=== PATIENT | male | born 1975 | race Caucasian/White ===

== ENCOUNTER 2020-08-19 13:34 | Emergency (ER) | payer MEDICAID, OTHER ==
[~2020-08-19] VITALS: Ht 175.3 cm; Wt 84.7 kg
--- NOTE | 2020-08-19 13:55 | NUR ---
[facility] FROM [facility], PT IN CUSTODY AND OFFICERS AT BEDSIDE. PER EMS PT ALTERED FSBS + 98 AND VSS SUPERVISOR CLAM BED. EMS RPTS PT ORIENTED TO PERSON AND YEAR ONLY. DR MARTINEZ AT BEDSIDE. PT NOW ALERT AND ORIENTED TO PERSON, PLACE AND FOLLOWS COMMANDS WITH ENCOURAGEMENT. PT HAS NO COMPLAINTS OF PAIN. DENIES DRUG USE. PUPILS ARE DILATED EDUARDO 6MM REACTIVE. ADMITS TO "1 DRINK TODAY" VSS. POC DISCUSSED, ORDERS REC'D.
[2020-08-19 14:13] LABS: BASOPHILS % (AUTO) 1 % (0-1); EOSINOPHILS % (AUTO) 0 % (1-7); LYMPHOCYTES % (AUTO) 21 % (22-44); MEAN CORPUSCULAR HEMOGLOBIN 30.8 pg (27.5-34.5); MEAN CORPUSCULAR HGB CONC 33.9 g/dL (33.2-36.2); MEAN PLATELET VOLUME 7.4 fL (7.4-10.4); MONOCYTES % (AUTO) 10 % (2-9); NEUTROPHILS % (AUTO) 68 % (42-75); PLATELET COUNT 331 x10^3/uL (130-400); RED BLOOD COUNT 5.12 x10^6/uL (4.38-5.82); RED CELL DISTRIBUTION WIDTH 13.5 % (9.4-14.8)
[2020-08-19 14:14] LABS: MD NO
[2020-08-19 14:24] LABS: ALANINE AMINOTRANSFERASE 17 U/L (12-78); ALBUMIN 4.5 g/dL (3.4-5.0); ANION GAP 8 mmol/L (5-15); CALCIUM 9.4 mg/dL (8.5-10.1); CHLORIDE 109 mmol/L (98-107); SALICYLATE LEVEL 2.7 mg/dL (2.8-20.0)
[2020-08-19 14:32] LABS: ALKALINE PHOSPHATASE 75 U/L (45-117); BILIRUBIN,TOTAL 1.3 mg/dL (0.2-1.0); CREATININE 0.95 mg/dL (0.7-1.3); TOTAL PROTEIN 7.9 g/dL (6.4-8.2)
[2020-08-19 14:35] LABS: CREATINE KINASE, TOTAL 402 U/L (39-308)
[2020-08-19 14:40] LABS: AMPHETAMINE SCREEN, URINE Positive (Negative); BARBITURATE SCREEN, URINE Negative (Negative); BENZODIAZEPINE SCREEN, URINE Negative (Negative); CANNABINOID SCREEN, URINE Positive (Negative); COCAINE SCREEN, URINE Negative (Negative); METHADONE SCREEN, URINE Negative (Negative); OPIATE SCREEN, URINE Negative (Negative)
--- NOTE | 2020-08-19 14:45 | NUR ---
BREAK RN FOR PRIMARY RN JESU. PT RESTING IN POSITION OF COMFORT. AWAITING TEST RESULTS. WOOL CLASSER(S) AT BEDSIDE. DENIES ANY NEEDS AT THIS TIME. VSS. ALL NEEDS MET AND ADDRESSED. CALL LIGHT IN REACH. FALL PRECAUTIONS IN PLACE. SIDE RAILS UPX2.
[2020-08-19 15:00] LABS: MICROSCOPIC INDICATED
[2020-08-19 15:19] VITALS: BP 129/76
--- NOTE | 2020-08-19 15:20 | NUR ---
Patient/Caregiver given discharge instructions and they have confirmed that they understand the instructions. Patient ambulatory with steady gait in custody of [facility] deputy
== END 2020-08-19 15:20 | disposition home or self-care (01) ==
LOC: ED 14:21
DX: G92 Toxic encephalopathy (principal); F15.10 Other stimulant abuse, uncomplicated; F12.10 Cannabis abuse, uncomplicated; R41.82 Altered mental status, unspecified; I10 Essential (primary) hypertension
CPT/HCPCS: 36415; 80053; 80307; 81001; 82550; 84443; 85025; 99283